=== PATIENT | female | born 1940 | race Caucasian/White ===

== ENCOUNTER → 2016-06-08 | Day surgery (SDC) | payer MEDICARE, BC ==
[~2016-06-08] MED LIST: ACETAMINOPHEN PO; AMIODARONE PO; ANTIBIOTIC; ASPIRIN PO; ASPIRIN81 M2 PO; ASPIRIN81 MG PO; ATENOLOL PO; CALCIUM + D 6001 TA1 PO; CALCIUM CARBONATE PO; CERTAGEN PO; CLARITIN10 M2 PO; CLOPIDOGREL75 MG PO; CORDARONE200 M1 PO; COUMADIN PO; CRESTOR PO; GELNIQUE TOP; IMDUR PO; IMDUR-ER30 M2; LANOXIN PO; LEVAQUIN250 MG PO; LIPITOR PO; LIPITOR80 MG PO; METOPROLOL TART25 MG PO; MILK OF MAGNESIA PO; NEXIUM PO; NORCO 7.5-3251 EACH PO; OCEAN45 ML; OMEPRAZOLE40 M1 PO; OXAPROZIN600 MG; OXYTROL1 PATCH.BW TOP; OYSTER CALCIUM500 MG; PACERONE PO; PANTOPRAZOLE SO40 MG PO; PATIENT'S PHARMACY; PHENERGAN PO; PLAVIX PO; PREMARIN PO; PROTONIX PO; TOPROL XL PO; WALGREEN'S PHARMACY
--- NOTE | ~2016-06-08 | OR ---
Unit #: [id number] #: [id number] Patient: ADDISON DILLON [id number] [address] [place], [place] [address] [id number] O MR#: [id number] NAME: ADDISON DILLON ROOM: Date of Procedure: 06/08/2016 Admission Date: 06/08/2016 Surgeon: Abisai Wright M.D. : 1940 Attending Physician: Abisai Wright M.D. Referring Physician: Abisai Wright M.D. Primary Care Physician: Fernando Garcia M.D. OPERATIVE REPORT PROCEDURE PERFORMED Colonoscopy with biopsies. INDICATIONS FOR PROCEDURE The patient with anemia of chronic blood loss, two sisters with colon cancer, undergoing colonoscopy for evaluation. MEDICATIONS Monitored anesthesia. POSTOPERATIVE FINDINGS 1. Mass about 3 cm with raised edges and central ulceration in ascending colon. Multiple biopsies were taken from the edges. It is very suspicious for malignancy. 2. Rest of the colon exam to cecum was normal. 3. Diverticulosis and internal hemorrhoids were noted. PLAN Follow up on pathology report. Further treatment recommendations to follow. Most likely will need right hemicolectomy. DESCRIPTION OF PROCEDURE The patient was explained of the procedure, risks, and benefits along with the risks and benefits of anesthesia. She was brought to the endoscopy room. Propofol anesthesia was given. Rectal exam was done, which was normal. Colonoscope was lubricated, passed up the rectum, advanced under direct vision all the way to the cecum. Cecum was identified by the ileocecal valve and appendiceal orifice. At this point, I started to pull the scope out carefully looking. A mass seen in the ascending colon was snared biopsy. I then started to pull the scope out carefully looking and no polyps or masses were seen. I retroflexed in the rectum, small hemorrhoids were seen. Scope was gently pulled out. She tolerated it well. Dictated by... Daniel Obando/summer TD: 06/09/2016 11:07 Unit #: [id number] #: [id number] Patient: ADDISON DILLON JOB #: [id number] CC: Abisai Wright M.D. OPERATIVE REPORT Page 1 of 1 X Abisai Wright MD PROCEDURE OPERATIVE NOTE
[2016-06-08 10:19] LABS: BASOPHIL# 0.2 X10e3 (0-0.3); BASOPHIL% 2.2 % (0-2.5); EOSINOPHIL# 0.3 X10e3 (0-0.7); EOSINOPHIL% 3.5 % (0.0-7.0); HEMATOCRIT 29.4 % (35.0-45.0); HEMOGLOBIN 9.1 gm/dL (12.0-16.0); LYMPHOCYTE# 1.1 X10e3 (1.0-3.5); LYMPHOCYTE% 12.1 % (17.0-45.0); MEAN CORPUSCULAR HEMOGLOBIN 23.5 PG (28-34); MEAN CORPUSCULAR HGB CONC 30.9 g/dL (30-36); MEAN PLATELET VOLUME 8.9 FL (6.5-11.5); MONOCYTE# 0.9 X10e3 (0-1.0); NEUTROPHIL# 6.5 X10e3 (1.5-7.1); NEUTROPHIL% 72.2 % (40-75); PLATELET COUNT 398 X10e3 (140-420); RED BLOOD COUNT 3.87 X10e (3.90-5.30); RED CELL DISTRIBUTION WIDTH 26.3 % (11.0-15.5)
[2016-06-08 10:20] LABS: DIFF IND YES
[2016-06-08 11:06] LABS: PLATELET ESTIMATE NORMAL (NORMAL)
[2016-06-08 11:09] LABS: HYPOCHROMIA SL; MICROCYTOSIS SL
== END | disposition home or self-care (01) ==
LOC: COPS 09:12
PROVIDERS: Internal Medicine
DX: C18.2 Malignant neoplasm of ascending colon (principal); K57.30 Diverticulosis of large intestine without perforation or abscess without bleeding; K64.8 Other hemorrhoids; D50.0 Iron deficiency anemia secondary to blood loss (chronic); Z80.0 Family history of malignant neoplasm of digestive organs; K21.9 Gastro-esophageal reflux disease without esophagitis; I25.10 Atherosclerotic heart disease of native coronary artery without angina pectoris; Z95.5 Presence of coronary angioplasty implant and graft; I48.91 Unspecified atrial fibrillation; Z88.2 Allergy status to sulfonamides; Z79.02 Long term (current) use of antithrombotics/antiplatelets; Z79.82 Long term (current) use of aspirin
CPT/HCPCS: 85025; 88305

== ENCOUNTER → 2016-11-12 | Outpatient (CLI) | payer MEDICARE, BC ==
--- NOTE | ~2016-11-12 | MY30 ---
[facility] A Service of [facility] RADIOLOGY TEXT RESULTS PATIENT: ADDISON DILLON LOCATION: [facility] : 38 UNIT #: [id number] AGE: [address]: Fernando Garcia MD SEX: F ORDER DR: [id number] [address] [address] [id number] O MR#: [id number] Acc #: [id number] NAME: ADDISON DILLON : 1940 SEX: F STUDY DATE/TIME: 11/12/2016 12:01 UNIT: [facility] ROOM: STUDY DESCRIPTION: MY SCREEN JOSE BILAT DIGITAL Attending Physician: Fernando Garcia M.D. Referring Physician: Fernando Garcia M.D. Ordering Physician: Fernando Garcia M.D. Primary Care Physician: Fernando Garcia M.D. MEDICAL IMAGING REPORT This report is preliminary unless electronic signature is present. EXAM Bilateral digital screening mammogram with CAD COMPARISON 12/27/2014, 12/04/2013, 10/03/2012, 10/09/2011, 09/23/2013, 05/08/2011, 08/22/2009, 04/22/2008, 08/20/2007. INDICATIONS Breast cancer screening. 76-year-old asymptomatic female. No personal or family history of breast cancer. FINDINGS There are scattered fibroglandular densities. Likely due to technical factors or possibly interval weight loss, breast density is symmetrically increased bilaterally. When allowing for technical differences, there are no suspicious findings in either breast. IMPRESSION No mammographic evidence of malignancy. Continued annual screening mammography and clinical breast exam are recommended. BIRADS: 2 Benign Finding. Patients over the age of 40 are entered into a reminder system with target due date for the next mammogram. A result letter will also be sent to the patient. Dictated by... Richmond Armijo M.D. THIS IS AN ELECTRONICALLY VERIFIED REPORT [facility] A Service of [facility] RADIOLOGY TEXT RESULTS PATIENT: ADDISON DILLON LOCATION: [facility] : 38 UNIT #: [id number] AGE: [address]: Fernando Garcia MD SEX: F ORDER DR: Richmond Armijo M.D. at 11/20/2016 2:50 AM BLM/pcl TD: 11/12/2016 21:08 JOB #: [id number] MEDICAL IMAGING REPORT Page 1 of 1
== END | disposition home or self-care (01) ==
LOC: SMAM 11:18
DX: Z12.31 Encounter for screening mammogram for malignant neoplasm of breast (principal)
CPT/HCPCS: G0202